=== PATIENT | male | born 1955 | race African-American/Black ===

== ENCOUNTER 2022-02-04 23:50 | Emergency (ER) | payer MEDICAID, OTHER ==
[~2022-02-04] VITALS: Ht 175.3 cm; Wt 80.0 kg
[2022-02-05 05:30] VITALS: BP 141/96
== END 2022-02-05 05:45 | disposition home or self-care (01) ==
LOC: ER 23:50 → EDBD 23:50 → ER 02-05 05:40
DX: S02.2XXA Fracture of nasal bones, initial encounter for closed fracture (principal); S09.8XXA Other specified injuries of head, initial encounter; Y04.2XXA Assault by strike against or bumped into by another person, initial encounter; Y93.89 Activity, other specified; Y92.89 Other specified places as the place of occurrence of the external cause; Y99.8 Other external cause status
CPT/HCPCS: 70450; 70486; 72125